=== PATIENT | male | born 2000 | race Caucasian/White ===

== ENCOUNTER 2018-05-25 22:48 | Emergency (ER) | payer OTHER ==
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
[2018-05-26] MEDS ORDERED: IBUPROFEN 800 MG TAB PO ONE (01:05)
[2018-05-26] MEDS ORDERED: ACETAMINOPHEN 500 MG TAB PO ONE (01:05)
[2018-05-26 02:45] VITALS: BP 122/68
== END 2018-05-26 02:46 | disposition home or self-care (01) ==
DX: S30.810A Abrasion of lower back and pelvis, initial encounter (principal); V29.9XXA Motorcycle rider (driver) (passenger) injured in unspecified traffic accident, initial encounter; Y92.410 Unspecified street and highway as the place of occurrence of the external cause